=== PATIENT | female | born 1945 | race Two or more races ===

== ENCOUNTER → 2023-02-22 | Outpatient (CLI) | payer OTHER | END | disposition home or self-care (01) | LOC: LAB 09:33 | PROVIDERS: ATTEND Internal Medicine Hematology & Oncology | DX: E78.5 Hyperlipidemia, unspecified (principal) | CPT/HCPCS: 82043; 82306 ==

== ENCOUNTER → 2023-06-18 | Outpatient (CLI) | payer OTHER ==
[2023-06-18 09:58] LABS: Basophils # (auto) 0.1 10 ^3/uL (0-0.2); Eosinophils # (auto) 0.2 10 ^3/uL (0-0.8); Eosinophils % (auto) 2.4 % (0.0-7.0); Hematocrit 41.7 % (36.0-46.0); Hemoglobin 13.7 g/dL (12.2-16.2); Lymphocytes # (auto) 1.7 10 ^3/uL (0.4-5.4); Lymphocytes % (auto) 24.8 % (10.0-50.0); Mean Corpuscular Hemoglobin 27.7 pg (28.0-32.0); Mean Corpuscular Hgb Conc. 32.8 g/dL (32.0-36.0); Mean Corpuscular Volume 84.3 fL (80.0-100.0); Monocytes # (auto) 0.5 10 ^3/uL (0-1.3); Monocytes % (auto) 7.9 % (0.0-12.0); Neutrophils # (auto) 4.3 10 ^3/uL (1.6-8.6); Neutrophils % (auto) 63.9 % (37.0-80.0); Red Blood Cells 4.94 10^6/uL (4.0-5.20); Red Cell Distribution Width 14.8 % (11.8-14.3); White Blood Cell 6.7 10^3/uL (4.4-10.8)
[2023-06-18 10:18] LABS: Albumin 3.6 g/dL (3.4-5.0); Calcium 8.4 mg/dL (8.5-10.1); Potassium 3.7 mmol/L (3.5-5.1)
[2023-06-18 10:20] LABS: Urine Blood Negative /uL (Negative); Urine Specific Gravity 1.007 (1.001-1.035)
[2023-06-18 10:23] LABS: Bilirubin, Total 0.4 mg/dL (0.2-1.0); Total Protein 7.4 g/dL (6.4-8.2)
== END | disposition home or self-care (01) ==
LOC: LAB 09:28
PROVIDERS: ATTEND Internal Medicine Hematology & Oncology
DX: M62.451 Contracture of muscle, right thigh (principal); F41.9 Anxiety disorder, unspecified; F13.20 Sedative, hypnotic or anxiolytic dependence, uncomplicated; H93.13 Tinnitus, bilateral
CPT/HCPCS: 36415; 80053; 80061; 81003; 83036; 84439; 84443; 85025

== ENCOUNTER → 2023-10-14 | Outpatient (CLI) | payer OTHER ==
[2023-10-14 11:47] LABS: Basophils # (auto) 0.1 10 ^3/uL (0-0.2); Basophils % (auto) 0.9 % (0.0-2.0); Eosinophils # (auto) 0.1 10 ^3/uL (0-0.8); Eosinophils % (auto) 1.9 % (0.0-7.0); Hematocrit 41.4 % (36.0-46.0); Hemoglobin 13.7 g/dL (12.2-16.2); Lymphocytes # (auto) 1.7 10 ^3/uL (0.4-5.4); Lymphocytes % (auto) 27.9 % (10.0-50.0); Mean Corpuscular Hemoglobin 27.7 pg (28.0-32.0); Mean Corpuscular Volume 83.8 fL (80.0-100.0); Monocytes # (auto) 0.6 10 ^3/uL (0-1.3); Monocytes % (auto) 9.1 % (0.0-12.0); Neutrophils # (auto) 3.8 10 ^3/uL (1.6-8.6); Neutrophils % (auto) 60.2 % (37.0-80.0); Nucleated Red Blood Cells % 0.1 %; Red Blood Cells 4.93 10^6/uL (4.0-5.20); Red Cell Distribution Width 14.7 % (11.8-14.3); White Blood Cell 6.3 10^3/uL (4.4-10.8)
[2023-10-14 12:50] LABS: Alanine Aminotransferase 19 U/L (7-40); Albumin 4.4 g/dL (3.2-4.8); Alkaline Phosphatase 69 U/L (46-116); Anion Gap 5 (5-15); Aspartate Aminotransferase 16 U/L (13-40); Blood Urea Nitrogen 9 mg/dL (9-23); Calcium 9.6 mg/dL (8.5-10.1); Carbon Dioxide 30 mmol/L (20-30); Chloride 104 mmol/L (98-107); Glucose 94 mg/dL (74-106); LDL Cholesterol 95 mg/dL (< 100); Potassium 4.5 mmol/L (3.5-5.1); Sodium 139 mmol/L (136-145); Triglycerides 96 mg/dL (< 150)
[2023-10-14 12:51] LABS: Bilirubin, Total 0.5 mg/dL (0.2-1.0); Cholesterol 181 mg/dL (< 200); HDL Cholesterol 70 mg/dL (40-59); Total Protein 6.9 g/dL (5.7-8.2)
== END | disposition home or self-care (01) ==
LOC: LAB 11:34
PROVIDERS: ATTEND Internal Medicine Hematology & Oncology
DX: I10 Essential (primary) hypertension (principal); E78.5 Hyperlipidemia, unspecified
CPT/HCPCS: 36415; 80053; 80061; 85025

== ENCOUNTER → 2024-04-18 | Outpatient (CLI) | payer OTHER ==
[2024-04-18 10:28] LABS: Basophils # (auto) 0 10 ^3/uL (0-0.2); Basophils % (auto) 0.3 % (0.0-2.0); Eosinophils # (auto) 0.1 10 ^3/uL (0-0.8); Eosinophils % (auto) 1.5 % (0.0-7.0); Hematocrit 42.1 % (36.0-46.0); Lymphocytes # (auto) 2.1 10 ^3/uL (0.4-5.4); Lymphocytes % (auto) 31.3 % (10.0-50.0); Mean Corpuscular Hemoglobin 27.7 pg (28.0-32.0); Mean Corpuscular Hgb Conc. 33.1 g/dL (32.0-36.0); Mean Corpuscular Volume 83.6 fL (80.0-100.0); Monocytes # (auto) 0.5 10 ^3/uL (0-1.3); Monocytes % (auto) 7.8 % (0.0-12.0); Neutrophils # (auto) 3.9 10 ^3/uL (1.6-8.6); Neutrophils % (auto) 59.1 % (37.0-80.0); Nucleated Red Blood Cells % 0.1 %; Red Blood Cells 5.04 10^6/uL (4.0-5.20); Red Cell Distribution Width 15.2 % (11.8-14.3); White Blood Cell 6.6 10^3/uL (4.4-10.8)
[2024-04-18 11:02] LABS: Alanine Aminotransferase 15 U/L (7-40); Albumin 4.5 g/dL (3.2-4.8); Alkaline Phosphatase 69 U/L (46-116); Anion Gap 5 (5-15); Aspartate Aminotransferase 14 U/L (13-40); BUN/Creatinine Ratio 9.5 (10.0-20.0); Blood Urea Nitrogen 8 mg/dL (9-23); Calcium 9.7 mg/dL (8.5-10.1); Carbon Dioxide 28 mmol/L (20-30); Chloride 103 mmol/L (98-107); Glucose 98 mg/dL (74-106); LDL Cholesterol 108 mg/dL (< 100); Potassium 4.3 mmol/L (3.5-5.1); Sodium 136 mmol/L (136-145); Triglycerides 90 mg/dL (< 150)
[2024-04-18 11:03] LABS: Bilirubin, Direct 0.2 mg/dL (<0.3); Bilirubin, Total 0.5 mg/dL (0.2-1.0); Cholesterol 193 mg/dL (< 200); HDL Cholesterol 70 mg/dL (40-59)
[2024-04-18 11:04] LABS: Total Protein 7.2 g/dL (5.7-8.2)
== END | disposition home or self-care (01) ==
LOC: LAB 10:13
PROVIDERS: ATTEND Internal Medicine Hematology & Oncology
DX: E78.5 Hyperlipidemia, unspecified (principal); Z00.00 Encounter for general adult medical examination without abnormal findings
CPT/HCPCS: 36415; 80048; 80061; 80076; 85025

== ENCOUNTER → 2025-01-23 | Outpatient (CLI) | payer OTHER ==
[2025-01-23 10:56] LABS: Basophils # (auto) 0 10 ^3/uL (0-0.2); Basophils % (auto) 0.7 % (0.0-2.0); Eosinophils # (auto) 0.1 10 ^3/uL (0-0.8); Eosinophils % (auto) 2.1 % (0.0-7.0); Hemoglobin 14.1 g/dL (12.2-16.2); Lymphocytes # (auto) 1.8 10 ^3/uL (0.4-5.4); Lymphocytes % (auto) 27.3 % (10.0-50.0); Mean Corpuscular Hemoglobin 28.6 pg (28.0-32.0); Mean Corpuscular Hgb Conc. 33.6 g/dL (32.0-36.0); Mean Corpuscular Volume 85.1 fL (80.0-100.0); Monocytes # (auto) 0.7 10 ^3/uL (0-1.3); Monocytes % (auto) 10.3 % (0.0-12.0); Neutrophils # (auto) 3.9 10 ^3/uL (1.6-8.6); Neutrophils % (auto) 59.6 % (37.0-80.0); Platelet Count (auto) 277 10^3/uL (140-450); Red Blood Cells 4.94 10^6/uL (4.0-5.20); Red Cell Distribution Width 15.2 % (11.8-14.3); White Blood Cell 6.5 10^3/uL (4.4-10.8)
[2025-01-23 11:35] LABS: Alanine Aminotransferase 11 U/L (7-40); Alkaline Phosphatase 64 U/L (46-116); Aspartate Aminotransferase 16 U/L (13-40); Triglycerides 111 mg/dL (< 150)
[2025-01-23 11:36] LABS: Albumin 4.6 g/dL (3.2-4.8); Anion Gap 8 (5-15); BUN/Creatinine Ratio 10.8 (10.0-20.0); Bilirubin, Total 0.5 mg/dL (0.2-1.0); Blood Urea Nitrogen 10 mg/dL (9-23); Calcium 9.7 mg/dL (8.7-10.4); Carbon Dioxide 27 mmol/L (20-31); Chloride 102 mmol/L (98-107); Cholesterol 185 mg/dL (< 200); Glucose 96 mg/dL (74-106); LDL Cholesterol 95 mg/dL (< 100); Potassium 4.6 mmol/L (3.5-5.1); Sodium 137 mmol/L (136-145); Total Protein 7.1 g/dL (5.7-8.2)
[2025-01-23 11:37] LABS: HDL Cholesterol 75 mg/dL (40-59)
== END | disposition home or self-care (01) ==
LOC: LAB 10:32
PROVIDERS: ATTEND Internal Medicine Hematology & Oncology
DX: J44.1 Chronic obstructive pulmonary disease with (acute) exacerbation (principal); K21.9 Gastro-esophageal reflux disease without esophagitis; F33.9 Major depressive disorder, recurrent, unspecified
CPT/HCPCS: 36415; 80053; 80061; 84443; 85025

== ENCOUNTER 2025-05-08 09:07 | Outpatient (CLI) | payer OTHER ==
[2025-05-08 09:49] LABS: Basophils # (auto) 0 10 ^3/uL (0-0.2); Basophils % (auto) 0.7 % (0.0-2.0); Eosinophils # (auto) 0.2 10 ^3/uL (0-0.8); Eosinophils % (auto) 2.6 % (0.0-7.0); Hematocrit 42.9 % (36.0-46.0); Hemoglobin 14.3 g/dL (12.2-16.2); Lymphocytes # (auto) 1.5 10 ^3/uL (0.4-5.4); Lymphocytes % (auto) 23.9 % (10.0-50.0); Mean Corpuscular Hgb Conc. 33.4 g/dL (32.0-36.0); Mean Corpuscular Volume 83.7 fL (80.0-100.0); Monocytes # (auto) 0.6 10 ^3/uL (0-1.3); Monocytes % (auto) 9.4 % (0.0-12.0); Neutrophils # (auto) 4.1 10 ^3/uL (1.6-8.6); Neutrophils % (auto) 63.4 % (37.0-80.0); Platelet Count (auto) 272 10^3/uL (140-450); Red Blood Cells 5.12 10^6/uL (4.0-5.20); Red Cell Distribution Width 14.7 % (11.8-14.3); White Blood Cell 6.5 10^3/uL (4.4-10.8)
[2025-05-08 10:16] LABS: Alanine Aminotransferase 11 U/L (7-40); Albumin 4.3 g/dL (3.2-4.8); Alkaline Phosphatase 60 U/L (46-116); Anion Gap 9 (5-15); Aspartate Aminotransferase 17 U/L (<34); BUN/Creatinine Ratio 9.6 (10.0-20.0); Blood Urea Nitrogen 9 mg/dL (9-23); Calcium 9.7 mg/dL (8.7-10.4); Carbon Dioxide 28 mmol/L (20-31); Chloride 105 mmol/L (98-107); Cholesterol 169 mg/dL (< 200); Glucose 99 mg/dL (74-106); LDL Cholesterol 93 mg/dL (< 100); Potassium 4.2 mmol/L (3.5-5.1); Sodium 142 mmol/L (136-145); Total Protein 6.7 g/dL (5.7-8.2); Triglycerides 103 mg/dL (< 150)
[2025-05-08 10:17] LABS: Bilirubin, Total 0.5 mg/dL (0.2-1.0)
[2025-05-08 10:18] LABS: HDL Cholesterol 66 mg/dL (40-59)
== END 2025-05-08 17:00 | disposition home or self-care (01) ==
LOC: LAB 09:07
PROVIDERS: ATTEND Internal Medicine Hematology & Oncology
DX: J44.1 Chronic obstructive pulmonary disease with (acute) exacerbation (principal); K21.9 Gastro-esophageal reflux disease without esophagitis; F33.9 Major depressive disorder, recurrent, unspecified
CPT/HCPCS: 36415; 80053; 80061; 84443; 85025

== ENCOUNTER 2025-08-02 09:04 | Outpatient (CLI) | payer OTHER ==
[2025-08-02 09:36] LABS: Hematocrit 44.9 % (36.0-46.0); Hemoglobin 15.2 g/dL (12.2-16.2); Mean Corpuscular Hemoglobin 28.5 pg (28.0-32.0); Mean Corpuscular Volume 83.9 fL (80.0-100.0); Nucleated Red Blood Cells % 0.1 %
[2025-08-02 09:52] LABS: Alanine Aminotransferase 14 U/L (7-40); Albumin 4.6 g/dL (3.2-4.8); Alkaline Phosphatase 69 U/L (46-116); Anion Gap 10 (5-15); BUN/Creatinine Ratio 7.6 (10.0-20.0); Bilirubin, Total 0.6 mg/dL (0.2-1.0); Calcium 9.3 mg/dL (8.7-10.4); Carbon Dioxide 27 mmol/L (20-31); Chloride 102 mmol/L (98-107); Cholesterol 186 mg/dL (< 200); Glucose 102 mg/dL (74-106); Potassium 4.1 mmol/L (3.5-5.1); Sodium 139 mmol/L (136-145); Total Protein 7.6 g/dL (5.7-8.2); Triglycerides 99 mg/dL (< 150)
[2025-08-02 10:11] LABS: Blood Urea Nitrogen 7 mg/dL (9-23); HDL Cholesterol 81 mg/dL (40-59)
== END 2025-08-02 17:00 | disposition home or self-care (01) ==
LOC: LAB 09:04
PROVIDERS: ATTEND Internal Medicine Hematology & Oncology
DX: J44.1 Chronic obstructive pulmonary disease with (acute) exacerbation (principal); K21.9 Gastro-esophageal reflux disease without esophagitis; F33.9 Major depressive disorder, recurrent, unspecified; Z85.3 Personal history of malignant neoplasm of breast
CPT/HCPCS: 36415; 80053; 80061; 84443; 85025